=== PATIENT | female | born 1960 | race Caucasian/White ===

== ENCOUNTER 2017-06-03 10:51 | Emergency (ER) | payer MEDICAID ==
[~2017-06-03] VITALS: Ht 162.6 cm; Wt 103.9 kg
[~2017-06-03 10:51] MED LIST: ACCUNEB SOL3 ML/NEB IN; ADULT LOW DOSE81 MG; AEROCHAMBER1 DEV IH; ALBUTEROL-200 PUFFS/ IH; ALBUTEROL2 PUFFS/17 IN; AMOXIL500 M1 PO; ATORVASTATIN 8080 MG; AZITHROMYCIN250 M1 PO; CIPRO 500MG TA500 MG PO; CLOPIDOGREL75 M1; DIAZEPAM5 MG PO; DOXEPIN50 MG; DOXYCYCLINE HY100 M3 PO; FLEXERIL10 MG PO; HYDROCODONE-APA1 TA1 PO; HYDROCODONE1 TABLET PO; IMODIUM MULTI-S1 TAB PO; ISOSORBIDE MONO60 M1; LISINOPRIL 5MG T5 MG PO; LORTAB 5/500 501 TAB PO; LOSARTAN POTASS1 TA4; MECLIZINE HYDRO25 MG PO; MEDROL 4MG. DOSE4 MG PO; METOPROLOL25 MG; MIRALAX PO255 GM/BOT PO; NAPROXEN SODIU500 MG PO; NOMEDS *; NOMEDS XX; PERCOCET 650 MG1 TAB PO; PRINIVIL10 M1 PO; REGLAN 10 MG TA10 MG PO; SERTRALINE 50MG50 MG; SINGULAIR10 MG PO; SULFAMETHOXAZOL1 TA6 PO; TESSALON PERLE100 MG PO; TORADOL10 MG PO; TRAMADOL 50MG T50 MG PO; ULTRAM50 MG PO; VOLTAREN75 MG PO; WELLBUTRIN SR100 MG PO; ZITHROMAX Z PA250 MG PO; ZITHROMAX Z-PA250 M1 PO; ZITHROMAX Z-PA250 M2 PO; ZOFRAN ODT4 MG PO; ZOFRAN ODT8 M1 PO; ZOFRAN4 MG PO
[2017-06-03 11:17] LABS: URINE BILIRUBIN - DIPSTICK NEGATIVE (NEG)
[2017-06-03 11:18] LABS: URINE BLOOD TRACE (NEG)
--- NOTE | 2017-06-03 11:30 | Urgent Treatment Center Report ---
History of Present Issue Date/Time Seen by Provider 06/03/17 1115 Visit Reason Pt arrived:Walked Presenting Problem:PT STATES "I FEEL LIKE EVERYTHING IS GOING TO FALL OUT OF MY VAGINA". PT IS CONCERNED THAT SHE MAY HAVE A UTI Location if Accident: Onset of symptoms date/time:/ or onset unknown for:MEDICAL HX UNKNOWN Have you (or family members/close friends) recently traveled outside the [place]? N If Yes, where/when: Have you had exposure to infectious disease within the past month? TB? Other? Specify: c/o "I think I have a UTI or am trying to pass a kidney stone." new onset pain last night. Initially left lower back now radiating around flank and into suprapubic region. Described as sharp "OMG type of pain" 04/20. hx of kidney stone w/ last approx 35 years ago but "i immediately remembered those when this pain started". Hx of back pain "but this is much worse then my normal." Source patient Exam Limitations no limitations ALLERGIES Coded Allergies: promethazine (From PHENERGAN) (Mild, NA-NAUSEA/VOMITING 06/28/16) Home Medications Active Scripts Polyethylene Glycol (Miralax Powder 255 Gm Bottle) 17 GM PO DAILYP PRN constipation #1 POW Prov: 04/28/17 Ondansetron (Zofran 4MG Odt) 4 MG PO Q6HP PRN NAUSEA AND VOMITING #6 ODT Prov: 11/12/16 ONDANSETRON HCL (Zofran 4MG Tab) 4 MG PO Q8HP PRN NAUSEA AND VOMITING #9 TAB Prov: 11/04/16 Reported Medications Metoprolol Tartrate (Metoprolol) Atorvastatin Calcium (Atorvastatin 80MG) Aspirin (Adult Low Dose Aspirin EC) Isosorbide Mononitrate (Isosorbide Mononitrate ER) CLOPIDOGREL BISULFATE (Clopidogrel) Doxepin Hcl (Doxepin) LOSARTAN/HYDROCHLOROTHIAZIDE (Losartan-Hctz 100-25 MG Tab) (Unknown Dose) Sertraline Hcl (Sertraline 50MG) BUPROPION HCL SR (Wellbutrin SR 100MG) 100 MG PO DAILY History Medical History General CAD? No Angina: Yes [place]: No Hypertension? Yes Hyperlipidemia? Yes CHF? No DVT? No PE? No COPD? Yes Asthma? Yes Anemia? No GERD? No Gastric ulcers? No GI Bleed? No Hernia? No Thyroid Problems? No Hypothyroidism? No CVA? Yes Seizures? No Diabetes? No Insulin Dependent: No Insulin Pump: No Home FSBS? No Renal Insuffiency? No UTI? Yes Stones? Yes BPH? No GB Disease: Yes Nephritic Syndrome? No Asplenia? No Hepatitis? No Sickle Cell Disease? No Arthritis? No Migraines? No Cataracts? No Glaucoma? No MRSA? No HIV? No TB? No Anxiety? No Depression? No Cancer? Yes Site: CERVIX More? No Immunization HX DT/Tetanus 05/13/11 Flu NEVER Pneumonia NEVER Surgical Hx Previous Surgery?Y Tubal Ligation CHOLECYSTECTOMY CERVICAL LASER Tonsils Appendix HYSTERECTOMY TEMPORAL BIOPSY Family History Family HX Diabetes No CAD No Hypertension No Hyperlipidemia No Cancer Yes TB No Social History Smoking Hx Smoker: Current Every Day Smoker Tobacco: Yes Type Cigarettes Packs/day 1 1/2 - 2 Packs Alcohol Alcohol: No Review of Systems All Other Systems Reviewed and Negative Constitutional denies fever, denies malaise Respiratory denies shortness of breath Gastrointestinal nausea, denies vomiting Genitourinary see HPI. Musculoskeletal see HPI Skin denies lesions, denies lumps Psychiatric/Neurological denies numbness, denies tingling Physical Exam Vital Signs Vital Signs Date Time Temp Pulse Resp B/P Pulse O2 O2 Flow FiO2 Ox Delivery Rate 06/03 1115 97.9 70 16 151/93 94 General Appearance mild distress, guarding suprapubic region Respiratory Status No: respiratory distress. Cardiovascular no peripheral edema Gastrointestinal normal bowel sounds, soft, tenderness (LLQ, suprapubic,) Back no CVA tenderness (on right), CVA tenderness (L) (mild) Neurologic alert, oriented x 3 Skin normal color, warm/dry Medical Decision Making LABS/Meds/Orders Pt receiving controlled substance in ED? No Results/Orders Laboratory Tests 06/03/17 1055: Urine Color YELLOW, Urine Appearance Clear, Urine pH 5.0, Ur Specific [place] 1.025, Urine Protein NEGATIVE, Urine Ketones NEGATIVE, Urine Blood TRACE H, Urine Nitrate NEGATIVE, Urine Bilirubin NEGATIVE, Urine Urobilinogen 0.2, Ur Leukocyte Esterase NEGATIVE, Urine Glucose NEGATIVE Orders Procedure Date/time Status [facility] URINE DIPSTICK 06/03 1055 Complete Progress [facility] Progress Notes Date 06/03/17 Time 1123 Comment Discussed UA and my concern that pt is passing a kidney stone. Pt agrees "that is likely with as much as I hurt". Discussed [facility] guidelines. Pt agreeable to transfer to ER. report called to Kelin. room 10 available. Departure Departure Time of Disposition 1123 Disposition Still a Patient Clinical Impression Primary Impression: Abdominal pain Qualifiers: Abdominal location: lower abdomen, unspecified Qualified Code: R10.30 - Lower abdominal pain, unspecified Secondary Impressions: Hematuria Qualifiers: Hematuria type: unspecified type Qualified Code: R31.9 - Hematuria, unspecified History of renal calculi Condition STABLE Additional Instructions assisted to ER by Keke. at 1123
--- NOTE | 2017-06-03 11:30 | Urgent Treatment Center Report ---
History of Present Issue Date/Time Seen by Provider 06/03/17 1115 Visit Reason Pt arrived:Walked Presenting Problem:PT STATES "I FEEL LIKE EVERYTHING IS GOING TO FALL OUT OF MY VAGINA". PT IS CONCERNED THAT SHE MAY HAVE A UTI Location if Accident: Onset of symptoms date/time:/ or onset unknown for:MEDICAL HX UNKNOWN Have you (or family members/close friends) recently traveled outside the [place]? N If Yes, where/when: Have you had exposure to infectious disease within the past month? TB? Other? Specify: c/o "I think I have a UTI or am trying to pass a kidney stone." new onset pain last night. Initially left lower back now radiating around flank and into suprapubic region. Described as sharp "OMG type of pain" 04/20. hx of kidney stone w/ last approx 35 years ago but "i immediately remembered those when this pain started". Hx of back pain "but this is much worse then my normal." Source patient Exam Limitations no limitations ALLERGIES Coded Allergies: promethazine (From PHENERGAN) (Mild, NA-NAUSEA/VOMITING 06/28/16) Home Medications Active Scripts Polyethylene Glycol (Miralax Powder 255 Gm Bottle) 17 GM PO DAILYP PRN constipation #1 POW Prov: 04/28/17 Ondansetron (Zofran 4MG Odt) 4 MG PO Q6HP PRN NAUSEA AND VOMITING #6 ODT Prov: 11/12/16 ONDANSETRON HCL (Zofran 4MG Tab) 4 MG PO Q8HP PRN NAUSEA AND VOMITING #9 TAB Prov: 11/04/16 Reported Medications Metoprolol Tartrate (Metoprolol) Atorvastatin Calcium (Atorvastatin 80MG) Aspirin (Adult Low Dose Aspirin EC) Isosorbide Mononitrate (Isosorbide Mononitrate ER) CLOPIDOGREL BISULFATE (Clopidogrel) Doxepin Hcl (Doxepin) LOSARTAN/HYDROCHLOROTHIAZIDE (Losartan-Hctz 100-25 MG Tab) (Unknown Dose) Sertraline Hcl (Sertraline 50MG) BUPROPION HCL SR (Wellbutrin SR 100MG) 100 MG PO DAILY History Medical History General CAD? No Angina: Yes [place]: No Hypertension? Yes Hyperlipidemia? Yes CHF? No DVT? No PE? No COPD? Yes Asthma? Yes Anemia? No GERD? No Gastric ulcers? No GI Bleed? No Hernia? No Thyroid Problems? No Hypothyroidism? No CVA? Yes Seizures? No Diabetes? No Insulin Dependent: No Insulin Pump: No Home FSBS? No Renal Insuffiency? No UTI? Yes Stones? Yes BPH? No GB Disease: Yes Nephritic Syndrome? No Asplenia? No Hepatitis? No Sickle Cell Disease? No Arthritis? No Migraines? No Cataracts? No Glaucoma? No MRSA? No HIV? No TB? No Anxiety? No Depression? No Cancer? Yes Site: CERVIX More? No Immunization HX DT/Tetanus 05/13/11 Flu NEVER Pneumonia NEVER Surgical Hx Previous Surgery?Y Tubal Ligation CHOLECYSTECTOMY CERVICAL LASER Tonsils Appendix HYSTERECTOMY TEMPORAL BIOPSY Family History Family HX Diabetes No CAD No Hypertension No Hyperlipidemia No Cancer Yes TB No Social History Smoking Hx Smoker: Current Every Day Smoker Tobacco: Yes Type Cigarettes Packs/day 1 1/2 - 2 Packs Alcohol Alcohol: No Review of Systems All Other Systems Reviewed and Negative Constitutional denies fever, denies malaise Respiratory denies shortness of breath Gastrointestinal nausea, denies vomiting Genitourinary see HPI. Musculoskeletal see HPI Skin denies lesions, denies lumps Psychiatric/Neurological denies numbness, denies tingling Physical Exam Vital Signs Vital Signs Date Time Temp Pulse Resp B/P Pulse O2 O2 Flow FiO2 Ox Delivery Rate 06/03 1115 97.9 70 16 151/93 94 General Appearance mild distress, guarding suprapubic region Respiratory Status No: respiratory distress. Cardiovascular no peripheral edema Gastrointestinal normal bowel sounds, soft, tenderness (LLQ, suprapubic,) Back no CVA tenderness (on right), CVA tenderness (L) (mild) Neurologic alert, oriented x 3 Skin normal color, warm/dry Medical Decision Making LABS/Meds/Orders Pt receiving controlled substance in ED? No Results/Orders Laboratory Tests 06/03/17 1055: Urine Color YELLOW, Urine Appearance Clear, Urine pH 5.0, Ur Specific [place] 1.025, Urine Protein NEGATIVE, Urine Ketones NEGATIVE, Urine Blood TRACE H, Urine Nitrate NEGATIVE, Urine Bilirubin NEGATIVE, Urine Urobilinogen 0.2, Ur Leukocyte Esterase NEGATIVE, Urine Glucose NEGATIVE Orders Procedure Date/time Status [facility] URINE DIPSTICK 06/03 1055 Complete Progress [facility] Progress Notes Date 06/03/17 Time 1123 Comment Discussed UA and my concern that pt is passing a kidney stone. Pt agrees "that is likely with as much as I hurt". Discussed [facility] guidelines. Pt agreeable to transfer to ER. report called to Kelin. room 10 available. Departure Departure Time of Disposition 1123 Disposition Still a Patient Clinical Impression Primary Impression: Abdominal pain Qualifiers: Abdominal location: lower abdomen, unspecified Qualified Code: R10.30 - Lower abdominal pain, unspecified Secondary Impressions: Hematuria Qualifiers: Hematuria type: unspecified type Qualified Code: R31.9 - Hematuria, unspecified History of renal calculi Condition STABLE Additional Instructions assisted to ER by Keke. at 1125
--- NOTE | 2017-06-03 12:20 | Emergency Room Report ---
History of Present Illness Time Seen by 1210 Presenting Problem in Triage Pt arrived:Walked Presenting Problem:BLOOD IN URINE, BACK PAIN Onset of symptoms date/time:/ or onset unknown for:MEDICAL HX UNKNOWN Treatment Prior to Arrival: [facility] [employer] Provided by:NURSE Sepsis Risk Assessment: Temp: 97.9 B/P: 151/93 MAP: 112 Pulse: 70 Resp: 16 Recent fever? N Clinical Suspician of Infection? N Mental Status: 1 - Regular (Normal Baseline) Sepsis Risk:Low Sepsis Risk Have you (or family members/close friends) recently traveled outside the [place]? N If Yes, where/when: Have you had exposure to infectious disease within the past month? TB? Other? Specify: 57 years old white female with multiple medical problems status post appendectomy hysterectomy and cholecystectomy. He developed LEFT flank pain 3 days ago and progressively radiating to the LEFT lower quadrant than the LEFT groin region. As for having dysuria and hematuria, she denies having fever or chills vomiting or diarrhea but she feels nauseous. She denies having chest pain shortness of breath or palpitations. She had history of kidney stones and she believes she believes that she has another one. Source patient, RN notes reviewed Exam Limitations no limitations ALLERGIES Coded Allergies: promethazine (From PHENERGAN) (Mild, NA-NAUSEA/VOMITING 06/03/17) Home Medications Active Scripts Polyethylene Glycol (Miralax Powder 255 Gm Bottle) 17 GM PO DAILYP PRN constipation #1 POW Prov: 04/28/17 Ondansetron (Zofran 4MG Odt) 4 MG PO Q6HP PRN NAUSEA AND VOMITING #6 ODT Prov: 11/12/16 ONDANSETRON HCL (Zofran 4MG Tab) 4 MG PO Q8HP PRN NAUSEA AND VOMITING #9 TAB Prov: 11/04/16 Reported Medications Metoprolol Tartrate (Metoprolol) Atorvastatin Calcium (Atorvastatin 80MG) Aspirin (Adult Low Dose Aspirin EC) Isosorbide Mononitrate (Isosorbide Mononitrate ER) CLOPIDOGREL BISULFATE (Clopidogrel) Doxepin Hcl (Doxepin) LOSARTAN/HYDROCHLOROTHIAZIDE (Losartan-Hctz 100-25 MG Tab) (Unknown Dose) Sertraline Hcl (Sertraline 50MG) BUPROPION HCL SR (Wellbutrin SR 100MG) 100 MG PO DAILY History Medical History General CAD? No Angina: Yes [place]: No Hypertension? Yes Hyperlipidemia? Yes CHF? No DVT? No PE? No COPD? Yes Asthma? Yes Anemia? No GERD? No Gastric ulcers? No GI Bleed? No Hernia? No Thyroid Problems? No Hypothyroidism? No CVA? Yes Seizures? No Diabetes? No Insulin Dependent: No Insulin Pump: No Home FSBS? No Renal Insuffiency? No End Stage Renal Disease? No UTI? Yes Stones? Yes BPH? No GB Disease: Yes Nephritic Syndrome? No Asplenia? No Hepatitis? No Sickle Cell Disease? No Arthritis? No Migraines? No Cataracts? No Glaucoma? No MRSA? No HIV? No TB? No Anxiety? No Depression? No Cancer? Yes Site: CERVIX More? 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 Respiratory no symptoms reported Cardiovascular no symptoms reported Gastrointestinal no symptoms reported Genitourinary see HPI, dysuria, hematuria. Musculoskeletal no symptoms reported, see HPI, back pain Skin no symptoms reported Psychiatric/Neurological no symptoms reported Physical Exam Vital Signs Vital Signs Date Time Temp Pulse Resp B/P Pulse O2 O2 Flow FiO2 Ox Delivery Rate 06/03 1425 97.9 70 18 147/88 92 06/03 1253 97.9 70 18 151/93 94 06/03 1251 18 06/03 1135 97.9 70 16 151/93 94 06/03 1115 97.9 70 16 94 - WBC >12,000 or <4,000 or 10% bands? 2 or more SIRS Criteria Met? B/P:/ MAP:112 Creatinine >2.0? UA output<0.5ml/kg/hr for 2 hrs? Platelet count >100,000? Lactate >2.0mmol/1? INR >1.2 or PTT > than 60 sec? Evidence of Organ Dysfunction? Provider documented clinical suspician of infection? N Sepsis Criteria Count: 0 Sepsis Risk: Low Sepsis Risk General Appearance normal appearance, WD/WN Eye Exam - bilateral eye normal exam, bilateral eye PERRL, bilateral eye EOMI Ear, Nose, Throat hearing grossly normal, normal ENT inspection Neck normal inspection, non-tender, supple, full range of motion Respiratory Status Yes: trachea midline, chest symmetrical, non tender chest. No: respiratory distress. Lung Sounds bilateral: normal breath sounds, lungs clear. Cardiovascular normal exam, regular rate/rhythm, no peripheral edema, no gallop, no JVD, no murmur, no rub, normal peripheral pulses Peripheral Pulses Pulses normal Yes Gastrointestinal normal bowel sounds, normal exam, non tender, soft, no organomegaly Back CVA tenderness (L) Extremities non-tender, normal range of motion, normal inspection Strength 5 Upper Ext (L), 5 Upper Ext (R), 5 Lower Ext (L), 5 Lower Ext (R) Neurologic alert, flame degreaser II-XII nml as tested, normal exam, oriented x 3 Reflexes Reflexes normal Yes Mental status normal mood/affect Skin intact, normal color, warm/dry Medical Decision Making LABS/Meds/Orders Pt receiving controlled substance in ED? No Results/Orders Laboratory Tests 06/03/17 1137: Sodium 141, Potassium 4.2, Chloride 102, Carbon Dioxide 30, BUN 14, Creatinine 0.9, Estimated Creat Clear 116, Estimated GFR (MDRD) 65, Glucose 95, Calcium 9.5 , Total Bilirubin 0.3, AST 20, ALT 12, Alkaline Phosphatase 137 H, Total Protein 8.1, Albumin 3.7, Globulin 4.4 H, Albumin/Globulin Ratio 0.8 L, WBC 12.0 H, RBC 5.31, Hgb 16.8 H, Hct 49.9 H, MCV 94.0, RDW 13.0, Plt Count 278, MPV 7.8, Gran % 78.2, Gran # 9.4 H, Lymphocytes % 16.1, Monocytes % 4.2, Eosinophils % 1.2, Basophils % 0.4, Lymphocytes # 1.9, Monocytes # 0.5, Eosinophils # 0.1, Basophils # 0.0, PUBS MCHC 33.6, MCH 31.6 H 06/03/17 1055: Urine Color YELLOW, Urine Appearance Clear, Urine pH 5.0, Ur Specific [place] 1.025, Urine Protein NEGATIVE, Urine Ketones NEGATIVE, Urine Blood TRACE H, Urine Nitrate NEGATIVE, Urine Bilirubin NEGATIVE, Urine Urobilinogen 0.2, Ur Leukocyte Esterase NEGATIVE, Urine Glucose NEGATIVE Current Medication Orders Sig/Ishan Start time Last Medication Dose Route Stop Time Status Admin Ketorolac 30 MG ONCE ONE 06/03 1415 DC Tromethamine IV 06/03 1416 Levofloxacin 500 MG ONCE ONE 06/03 1415 DC PO 06/03 1416 Metronidazole 100 ML ONCE ONE 06/03 1415 AC 06/03 IV 06/03 1514 1413 Metronidazole 100 ML .STK-MED ONE 06/03 1410 DC IV Ondansetron HCl 0 .STK-MED ONE 06/03 1249 DC .ROUTE Morphine Sulfate 0 .STK-MED ONE 06/03 1248 DC .ROUTE Morphine Sulfate 2 MG [id number] PRN 06/03 1215 AC 06/03 IV 1251 Ondansetron HCl 4 MG ONCE ONE 06/03 1215 DC 06/03 IV 06/03 1216 1248 Orders Procedure Date/time Status DIET-NOTHING BY MOUTH 06/[address] SCAN REQ 06/03 1211 Complete CBC WITH AUTO DIFF 06/03 1211 Complete CHEM 12 PROFILE 06/03 1211 Complete [facility] URINE DIPSTICK 06/03 1055 Complete Departure Departure Time of Disposition 1410 Disposition DC Home or Self Care(routine) Clinical Impression Primary Impression: Acute diverticulitis Condition STABLE Referrals NAVA DURBIN (Family) Additional Instructions I discussed with the patient her lab and ct findings. She declined admission and preferred to go home and take abx by mouth. I told her to return if she gets worse pain, fever or vomiting or unable to keep her abx, and to return for IV abx. SHe verbalized understanding. I spoke with her verbalized understanding of the DC plan. no seeds or nuts start on abx use tylenol ofr pain Discharge Counseling Counseled pt/family regarding diagnosis, test results, medications/RX, home care, follow up needs Prescriptions Current Visit Scripts Metronidazole (Flagyl) 500 MG PO Q8 #30 TAB Ciprofloxacin HCl (Cipro 500MG TAB) 500 MG PO BID #20 TAB KETOROLAC TROMETHAMINE (TORADOL 10MG) 10 MG PO Q12HP #6 TAB ED Critical Care Critical Care No If Critical Care minutes are documented, the time involved in the performance of seperately reportable procedures was not counted toward critical care time documented. I directly delivered medical care to this critically ill and/or injured patient. Timely evaluation and treatment was necessary to address the significant organ system(s) dysfunction present in this patient. at 4783
[2017-06-03 12:38] LABS: HEMOGLOBIN 16.8 g/dL (12.2-16.2); LYMPH # 1.9 K/mm3 (0.7-4.5); LYMPH % 16.1 % (10-50.0)
--- NOTE | 2017-06-03 13:27 | RADIOLOGY REPORT PS360 ---
CT ABD PELVIS W/O CONTRAST CLINICAL INDICATION: LEFT CVA PAIN X 2-3 DAYS. ORDERING PHYSICIAN: Wayne Mauricio MD PATIENT AGE: 57 years COMPARISON: 06/07/2016 TECHNIQUE: Axial images obtained with sagittal and coronal reformats. PROCEDURE: Oral Contrast: None IV Contrast: None . FINDINGS: The lung bases are clear. Prior cholecystectomy without biliary dilatation. The liver, spleen, and pancreas are unremarkable. There is bilateral adrenal enlargement with low density changes in the adrenal glands consistent with bilateral adrenal adenomas. No renal calculi, ureteral calculi, or hydronephrosis. The urinary bladder has an unremarkable appearance. There is diverticulosis of the sigmoid colon. There is thickening of the sigmoid colon with stranding of the pericolic fat in the left lower quadrant adjacent to the sigmoid colon consistent with diverticulitis. No abscess or free air is evident. No obvious perforation. There has been prior hysterectomy. There is thickening of the ascending, transverse, and ascending colon probably related to nondistention. Mild colitis is also considered. No acute bony anomalies. IMPRESSION: Diverticulitis of the sigmoid colon. No evidence of abscess or perforation. Bilateral adrenal adenomas
[2017-06-03] MEDS ORDERED: CIPRO 500MG TA500 MG PO (14:12)
[2017-06-03] MEDS ORDERED: FLAGYL500 M1 PO (14:12)
[2017-06-03] MEDS ORDERED: TORADOL10 MG PO (14:13)
[2017-06-03 15:20] VITALS: BP 142/80
== END 2017-06-03 15:21 | disposition home or self-care (01) ==
LOC: UTC 10:51 → ER 10:54 → UTC 10:54 → ER 15:21
PROVIDERS: Emergency Medicine; Nurse Practitioner Family
DX: K57.92 Diverticulitis of intestine, part unspecified, without perforation or abscess without bleeding (principal); R10.30 Lower abdominal pain, unspecified; Z87.442 Personal history of urinary calculi; F17.210 Nicotine dependence, cigarettes, uncomplicated; Z88.8 Allergy status to other drugs, medicaments and biological substances; Z79.899 Other long term (current) drug therapy; I10 Essential (primary) hypertension; E78.5 Hyperlipidemia, unspecified
CPT/HCPCS: J2405